=== PATIENT | male | born 1970 | race African-American/Black ===

== ENCOUNTER 2018-08-30 14:32 | Emergency (ER) | payer OTHER ==
--- NOTE | 2018-08-30 14:54 | PDOC ---
Rapid Medical Evaluation Time Seen by Provider: 08/30/18 14:51 Medical Evaluation: 08/30/18 14:52 I have performed a brief in-person evaluation of this patient. The patient presents with a chief complaint of abdominal pain x 4 days. Also reports nausea, vomiting and diarrhea. Last vomit last night, diarrhea this afternoon Pertinent physical exam findings NAD even and unlabored breathing + bowel sounds, + right upper quadrant tenderness I have ordered the following labs The patient will proceed to the ED for further evaluation.
[2018-08-30 14:55] VITALS: BP 132/81; PULSE 97; TEMP 98.4; BMI 25.8
[2018-08-30 15:19] LABS: BASO % 0.9 % (0-2.0); EOS % 5.1 % (0-4.5); HEMATOCRIT 40.5 % (35.4-49); HEMOGLOBIN 13.6 GM/dL (11.7-16.9); LYMPH % 27.8 % (8-40); MCH 24.9 pg (25.7-33.7); MCHC 33.7 g/dl (32.0-35.9); MEAN PLT VOLUME 9.4 fl (7.5-11.1); MONO % 5.2 % (3.8-10.2); PLATELET COUNT 186 K/MM3 (134-434); RBC 5.47 M/mm3 (4.00-5.60); RDW 17.2 % (11.9-15.9); WHITE BLOOD COUNT 6.9 K/mm3 (4.0-10.0)
[2018-08-30 15:21] LABS: URINE APPEARANCE CLEAR; URINE BILIRUBIN NEGATIVE (<2.0 mg/dL); URINE COLOR YELLOW; URINE GLUCOSE (UA) NEGATIVE (NEGATIVE); URINE KETONE NEGATIVE (NEGATIVE); URINE LEUK ESTERASE NEGATIVE (NEGATIVE); URINE NITRITE NEGATIVE (NEGATIVE); URINE PROTEIN NEGATIVE (NEGATIVE)
[2018-08-30 15:53] LABS: ALBUMIN 3.8 g/dl (3.4-5.0); ALK PHOS 99 U/L (45-117); ANION GAP 8 MMOL/L (8-16); BILIRUBIN,TOTAL 0.2 mg/dL (0.2-1); BLOOD UREA NITROGEN 15 mg/dL (7-18); CALCIUM 8.3 mg/dL (8.5-10.1); CHLORIDE 110 mmol/L (98-107); CO2 24 mmol/L (21-32); GLUCOSE,RANDOM 109 mg/dL (74-106); POTASSIUM 3.4 mmol/L (3.5-5.1); SGOT/AST 27 U/L (15-37); SGPT/ALT 65 U/L (13-61); SODIUM 142 mmol/L (136-145)
--- NOTE | 2018-08-30 16:21 | PDOC ---
History of Present Illness - General Stated Complaint: ABD PAIN Time Seen by Provider: 08/30/18 14:51 History Source: Patient - History of Present Illness Timing/Duration: reports: intermittent Past History - Past Medical History Allergies/Adverse Reactions: Allergies Allergy/AdvReac Type Severity Reaction Status Date / Time No Known Allergies Allergy Verified 08/30/18 14:58 - Suicide/Smoking/Psychosocial Hx Smoking History: Current every day smoker Number of Cigarettes Smoked Daily: 8 Information on smoking cessation initiated: No Hx Alcohol Use: No Drug/Substance Use Hx: Yes (weede) Review of Systems - Review of Systems Constitutional: No: Chills, Fever ABD/GI: No: Diarrhea, Nausea, Vomiting : Yes: Flank Pain. No: Burning, Dysuria, Discharge, Hematuria *Physical Exam - Vital Signs Last Vital Signs Temp Pulse Resp BP Pulse Ox 98.4 F 97 H 20 132/81 100 08/30/18 14:52 08/30/18 14:52 08/30/18 14:52 08/30/18 14:52 08/30/18 14:52 - Physical Exam General Appearance: Yes: Appropriately Dressed. No: Apparent Distress HEENT: positive: Normal Voice Neck: positive: Supple Gastrointestinal/Abdominal: positive: Soft. negative: Tender Musculoskeletal: negative: CVA Tenderness, Vertebral Tenderness Extremity: positive: Normal Inspection Integumentary: positive: Dry, Warm Neurologic: positive: Fully Oriented, Alert, Normal Mood/Affect Moderate Sedation - Procedure Monitoring Vital Signs: Procedure Monitoring Vital Signs Temperature 98.4 F 08/30/18 14:52 Pulse Rate 97 H 08/30/18 14:52 Respiratory Rate 20 08/30/18 14:52 Blood Pressure 132/81 08/30/18 14:52 O2 Sat by Pulse Oximetry (%) 100 08/30/18 14:52 ED Treatment Course - LABORATORY CBC & Chemistry Diagram: 08/30/18 15:03 08/30/18 15:03 - ADDITIONAL ORDERS Additional order review: Laboratory Results 08/30/18 08/30/18 15:03 14:55 Sodium 142 Potassium 3.4 L Chloride 110 H Carbon Dioxide 24 Anion Gap 8 BUN 15 Creatinine 1.0 Creat Clearance w eGFR > 60 Random Glucose 109 H Calcium 8.3 L Total Bilirubin 0.2 AST 27 ALT 65 H Alkaline Phosphatase 99 Total Protein 7.0 Albumin 3.8 Urine Color Yellow Urine Appearance Clear Urine pH 5.0 Ur Specific [place] 1.028 Urine Protein Negative Urine Glucose (UA) Negative Urine Ketones Negative Urine Blood Negative Urine Nitrite Negative Urine Bilirubin Negative Urine Urobilinogen 2.0 Ur Leukocyte Esterase Negative 08/30/18 15:03 RBC 5.47 MCV 74.0 L MCHC 33.7 RDW 17.2 H MPV 9.4 Neutrophils % 61.0 Lymphocytes % 27.8 Monocytes % 5.2 Eosinophils % 5.1 H Basophils % 0.9 Medical Decision Making - Medical Decision Making 08/30/18 16:16 48 yo male, no sig pmhx, here with L flank pain 3 days, intermittent, worse with movement and with bowel movements. No constipation, diarrhea, BRBPR melena , dysuria, nausea, vomiting, fever or chills. No history of similar pain. No history of kidney stone. No recent trauma or other obvious inciting factors. pain free currently per pt See exam R/o renal colic, less likely diverticulitis, no R sided pain to suggest appy, unlikely biliary source or pancreatitis -labs -CT 08/30/18 19:01 Labs and UA negative. CT a/p was compared to CT in 2006 and remonstrates soft tissue density centrally w/ mildly enlarge lymph nodes in same region w/ interval development of mesenteric soft tissue stranding adjacent to ascending colon which could suggest ? increasing mesenteritis. Pt informed of results and given GI f/u. Reasons to return to ED d/w pt *DC/Admit/Observation/Transfer Diagnosis at time of Disposition: Left flank pain - Discharge Dispostion Disposition: HOME Condition at time of disposition: Good - Referrals Referrals: Wil Goodman MD [Staff Physician] - - Patient Instructions Printed Discharge Instructions: DI for Abdominal Pain-Adult Additional Instructions: The cause of your abdominal pain is unclear at this time but your CT scan does shows some enlarged lymphnodes/inflammation near your colon Please call Dr Goodman of GI to make an appointment - Post Discharge Activity Forms/Work/School Notes: Back to Work
== END 2018-08-30 19:30 | disposition home or self-care (01) ==
LOC: JER 14:32
DX: R10.32 Left lower quadrant pain (principal)
CPT/HCPCS: 36415; 74176-TC; 80053; 81003; 85025; 87086; 99283-25